=== PATIENT | male | born 1945 | race Hispanic/Latino ===

== ENCOUNTER 2019-04-01 05:24 | Emergency (ER) | payer MEDICARE ==
[~2019-04-01] VITALS: Ht 175.3 cm; Wt 89.4 kg
[~2019-04-01 05:24] MED LIST: FLOMAX0.4 MG PO; LEVAQUIN500 MG PO
--- OUTSIDE RECORDS SUMMARY | 2019-04-01 05:27 | XMS REPORT ---
Author Author [facility] Address Unknown Phone Unavailable Care Team Providers Care Advertising Columnist Name Role Phone RAMONE RENAE Unavailable Unavailable Problems This patient has no known problems. Allergies, Adverse Reactions, Alerts This patient has no known allergies or adverse reactions. Medications This patient has no known medications. Results Test Description Test Time Test Comments Text Results Atomic Results Result Comments CHEST SINGLE (PORTABLE) 2019-03-25 13:39:00 [place] [address] Patient Name: NILSON DE LA VEGA MR #: [id number] : 1945 Age/Sex: 73/M Req #: [id number] Adm Physician: Ordered by: RAOUL POWELL DINING ROOM SERVER Report #: [id number] Location: ER Room/Bed: Procedure: [id number] DX/CHEST SINGLE (PORTABLE) Exam Date: 03/25/19 Exam Time: 1140 REPORT STATUS: Signed Clinical History: ERMD ORDER [id number] Y Comparison Study: None Findings: The heart and lungs are within normal limits. The pleural spaces are clear. Some focal eventration of the right hemidiaphragm is noted. There is no pneumothorax. No significant bony or soft tissue abnormalities are seen. Impression: No active cardiopulmonary disease. Signed by: Dewayne Adrian MD on 03/25/2019 1:39 PM Dictated By: DEWAYNE ADRIAN MD 38 Transcribed By: DENI on 03/25/191338 COPY TO: RAOUL POWELL NP CT BRAIN WO 2019-03-25 11:42:00 [place] [address] Patient Name: NILSON DE LA VEGA MR #: [id number] : 1945 Age/Sex: 73/M Req #: [id number] Adm Physician: Ordered by: RAOUL POWELL NP Report #: [id number] Location: Room/Bed: Procedure: [id number] CT/CT BRAIN WO Exam Date: 03/25/19 Exam Time: 1120 REPORT STATUS: Signed Exam: Head CT without contrast History: Dizziness Comparison studies: None Technique: Axial images were obtained from the skull base to the vertex. Coronal and sagittal images reconstructed from the axial data. Dose modulation, iterative reconstruction, and/or weight based adjustment of the mA/kV was utilized to reduce the radiation dose to as low as reasonably achievable. Radiation dose: Total DLP: 1036.57 mGy*cm. Estimated effective dose: DLP x 0.015 Intravenous contrast: None Findings: Scalp: No abnormalities. Bones: No fractures, blastic or lytic lesions. Brain sulci: Mildly prominent. Ventricles: Mild compensatory dilatation. No hydrocephalus. Extra-axial spaces: No masses, no fluid collection. Parenchyma: No mass, acute hemorrhage or acute or chronic cortical insults. A few subtle hypodensities in the supratentorial white matter are nonspecific but are most compatible with chronic microvascular ischemic changes. Sellar/suprasellar region: No abnormalities. Crani ocervical junction: Patent foramen magnum. No Chiari one malformation. Incidental findings: Atherosclerotic calcifications in the carotid siphons. IMPRESSION: No acute intracranial abnormalities. Chronic findings: 1. Mild generalized parenchymal volume loss. 2. Mild microvascular ischemic changes. Signed by: Dr. Serena Neumann M.D. on 03/25/2019 11:47 AM Dictated By: SERENA NEUMANN MD 1147 Transcribed By: DENI on 03/25/19 1147 COPY TO: RAOUL POWELL NP
--- NOTE | 2019-04-01 05:40 | NUR ---
pt c/o pain to lower abdomen due to urinary retention. suprapubic area noted distended. pt states that unable to void since 1999 lastnight. md at bedside. bladder scan performed per orders. bladder scan result revealed >200cc urine in bladder. coude catheter ordered. 20 fr coude catheter inserted per orders using sterile technique. 520 cc clear yellow urine return noted. pt states that discomfort relieved p catheter inserted.
[2019-04-01 06:16] VITALS: BP 119/82
[2019-04-01 06:18] LABS: BILIRUBIN,URINE NEGATIVE (NEGATIVE); CLARITY,URINE CLEAR (CLEAR); COLOR,URINE YELLOW (YELLOW); KETONES,URINE NEGATIVE (NEGATIVE); LEUKOCYTE ESTERASE ,URINE NEGATIVE (NEGATIVE); NITRITE,URINE NEGATIVE (NEGATIVE); PROTEIN,URINE DIPSTICK NEGATIVE (NEGATIVE); URINE UROBILINOGEN 0.2 mg/dL (0.2 - 1)
[2019-04-01 06:22] LABS: BACTERIA,URINE FEW /HPF; EPITHELIAL CELLS,URINE FEW /LPF; RBC,URINE 0-5 /HPF (0-5); WBC,URINE (MAN) 0-5 /HPF (0-5)
== END 2019-04-01 06:30 | disposition home or self-care (01) ==
LOC: ER 05:24
DX: R10.30 Lower abdominal pain, unspecified (principal); R33.9 Retention of urine, unspecified; N40.1 Benign prostatic hyperplasia with lower urinary tract symptoms; I10 Essential (primary) hypertension; E11.9 Type 2 diabetes mellitus without complications; Z85.46 Personal history of malignant neoplasm of prostate
CPT/HCPCS: 51700; 81001; 99282

== ENCOUNTER 2019-04-01 13:20 | Emergency (ER) | payer MEDICARE ==
[~2019-04-01] VITALS: Ht 175.3 cm; Wt 89.4 kg
== END 2019-04-01 14:07 | disposition home or self-care (01) ==
LOC: ER 13:20
DX: Z46.6 Encounter for fitting and adjustment of urinary device (principal); I10 Essential (primary) hypertension; E11.9 Type 2 diabetes mellitus without complications; E78.5 Hyperlipidemia, unspecified; Z85.46 Personal history of malignant neoplasm of prostate
CPT/HCPCS: 99282

== ENCOUNTER 2019-06-28 10:46 | Emergency (ER) | payer MEDICARE ==
[~2019-06-28] VITALS: Ht 175.3 cm; Wt 89.4 kg
--- NOTE | 2019-06-28 11:14 | NUR ---
CLIENT EAR FLUSHED WITH WARM WATER AND FOREIGN BODY OBTAINED FROM LEFT EAR. CLIENT REPORTS BEING ABLE TO HEAR AGAIN.
== END 2019-06-28 11:19 | disposition home or self-care (01) ==
LOC: ER 10:46
DX: T16.2XXA Foreign body in left ear, initial encounter (principal); I10 Essential (primary) hypertension; E11.9 Type 2 diabetes mellitus without complications; Z85.46 Personal history of malignant neoplasm of prostate
CPT/HCPCS: 99282